=== PATIENT | male | born 1960 | race Caucasian/White ===

== ENCOUNTER 2018-10-26 10:16 | Emergency (ER) | payer BC ==
[~2018-10-26] VITALS: Ht 167.6 cm; Wt 84.8 kg
[2018-10-26 10:22] VITALS: Ht 167.6 cm; Wt 84.8 kg
[2018-10-26] MEDS ORDERED: SODIUM CHLORIDE 0.9% 1L BAG IV* STA (10:56)
[2018-10-26 13:27] VITALS: BP 145/75; PULSE 60; RESP 18
--- NOTE | 2018-10-26 13:59 | ERD ---
ER Documentation Chief Complaint Chief Complaint LT FOOT WOUND, HX DIABETES HPI This is a 58-year-old male who presents for evaluation of the left foot wound. Symptoms have been ongoing for about the last week. He denies fever, however he has felt some swelling over the left fifth toe. He does have a history of diabetes, no calf pain or swelling. ROS All systems reviewed and are negative except as per history of present illness. Allergies Allergies: Coded Allergies: No Known Allergy (Unverified , 10/26/18) PMhx/Soc Anesthesia Reaction: No Hx Neurological Disorder: No Hx Respiratory Disorders: No Hx Cardiac Disorders: Yes (HTN) Hx Psychiatric Problems: No Hx Miscellaneous Medical Probl: Yes (HIGH CHOLESTEROL,DM) Hx Alcohol Use: No Hx Substance Use: No Hx Tobacco Use: No Smoking Status: Never smoker Physical Exam Vitals Vital Signs Date Temp Pulse Resp B/P (MAP) Pulse Ox O2 O2 Flow FiO2 Time Delivery Rate 10/26/18 97.6 60 18 145/75 98 Room Air 13:27 (98) 10/26/18 98.4 64 16 140/66 97 10:22 (90) Physical Exam Const: No acute distress Head: Atraumatic Eyes: Normal Conjunctiva ENT: Normal External Ears, Nose and Mouth. Neck: Full range of motion. No meningismus. Resp: Clear to auscultation bilaterally Cardio: Regular rate and rhythm, no murmurs Abd: Soft, non tender, non distended. Normal bowel sounds Skin: No petechiae or rashes Back: No midline or flank tenderness Ext: No cyanosis, or edema. There is evidence of onychomycosis to the digits bilaterally, there is very minimal swelling noted to the left fifth phalanges, there is no crepitus, no induration, no fluctuance. There is no calf tenderness. Neur: Awake and alert Psych: Normal Mood and Affect Result Diagram: 10/26/18 1123 Results 24 hrs Laboratory Tests Test 10/26/18 11:23 10/26/18 11:27 10/26/18 13:01 White Blood Count Pending Red Blood Count Pending Hemoglobin Pending Hematocrit Pending Mean Corpuscular Volume Pending Mean Corpuscular Hemoglobin Pending Mean Corpuscular Hemoglobin Concent Pending Red Cell Distribution Width Pending Platelet Count Pending Mean Platelet Volume Pending Erythrocyte Sedimentation Rate 48 mm/Hr Prothrombin Time 11.2 Sec Prothrombin Time Ratio 0.9 INR International Normalized Ratio 0.80 Activated Partial Thromboplast Time 26.0 Sec Urine Color YELLOW Urine Clarity CLEAR Urine pH 5.0 Urine Specific [place] 1.016 Urine Ketones NEGATIVE mg/dL Urine Nitrite NEGATIVE mg/dL Urine Bilirubin NEGATIVE mg/dL Urine Urobilinogen NEGATIVE mg/dL Urine Leukocyte Esterase NEGATIVE Azar/ul Urine Microscopic RBC 1 /HPF Urine Microscopic WBC 1 /HPF Urine Hemoglobin NEGATIVE mg/dL Urine Glucose 1+ mg/dL Urine Total Protein 2+ mg/dl Sodium Level 139 mmol/L Potassium Level 4.6 mmol/L Chloride Level 105 mmol/L Carbon Dioxide Level 24 mmol/L Anion Gap 10 Blood Urea Nitrogen 29 mg/dl Creatinine 1.15 mg/dl Est Glomerular Filtrat Rate mL/min > 60 mL/min Glucose Level 215 mg/dl Calcium Level 8.9 mg/dl Total Bilirubin 0.5 mg/dl Direct Bilirubin 0.00 mg/dl Indirect Bilirubin 0.5 mg/dl Aspartate Amino Transf (AST/SGOT) 20 IU/L Alanine Aminotransferase (ALT/SGPT) 24 IU/L Alkaline Phosphatase 45 IU/L Troponin I < 0.012 ng/ml C-Reactive Protein < 0.5 mg/dl Total Protein 6.6 g/dl Albumin 3.5 g/dl Globulin 3.10 g/dl Albumin/Globulin Ratio 1.12 POC Venous Lactate 1.8 mmol/L Lactic Acid Level 2.0 mmol/L Current Medications Medications Dose Sig/Mica Start Time Status Last (Trade) Ordered Route PRN Stop Time Admin Dose Reason Admin Sodium 2,540 ml BOLUS OVER 2 10/26/18 DC 10/26/18 Chloride HOURS STAT 10:56 10/26/18 11:41 (NS) IV* 11:10 Procedures/MDM 58-year-old male presents for evaluation of left foot swelling. On exam, patien t had no evidence of abscess, he did not have any significant swelling, but was noted to have some tenderness over his digit, compartments of the foot were soft and easily compressible. X-ray did not show evidence of osteomyelitis, and labs were overall unremarkable. CRP was negative, I discussed findings with the patient, I think it is reasonable to treat empirically for early cellulitis, given he has diabetes and this is a risk factor for soft tissue infection. Patient has follow-up with podiatry this week, recommend return for any fever, worsening pain or redness or any worsening symptoms at discharge she was in no distress. Departure Diagnosis: Primary Impression: Foot pain Laterality: unspecified laterality Qualified Codes: M79.673 - Pain in unspecified foot Condition: Stable FELIPE VELOZ MD Oct 26, 2018 13:59
[2018-10-26] MEDS ORDERED: SULF1TAB31 PO (14:46)
[2018-10-26] MEDS ORDERED: GABA100C14 PO (14:59)
[2018-10-26] MEDS ORDERED: IBUP-1542 PO (15:03)
== END 2018-10-26 15:06 | disposition home or self-care (01) ==
LOC: EDBD 10:16 → E/R 10:16
DX: M79.672 Pain in left foot (principal); E11.9 Type 2 diabetes mellitus without complications
CPT/HCPCS: 36415; 73630; 80053; 81001; 83605; 84484; 85025; 85610; 85651; 85730; 86140; 87040; 87086; 93005; 99285; J7030